=== PATIENT | female | born 1970 | race Caucasian/White ===

== ENCOUNTER 2016-10-04 16:32 | Outpatient (CLI) ==
[2016-10-04 17:58] LABS: BILIRUBIN,URINE Negative (NEGATIVE); KETONES,URINE Trace (NEGATIVE); LEUKOCYTE ESTERASE ,URINE Negative (NEGATIVE); NITRITE,URINE Negative (NEGATIVE); PH,URINE 5.5 (5-9); PROTEIN,URINE Trace (NEGATIVE); URINE, BLOOD Negative (NEGATIVE)
[2016-10-04 17:59] LABS: ADD URINE MICROSCOPIC YES
[2016-10-04 18:01] LABS: BACTERIA,URINE 2+ (NOT PRESENT)
== END 2016-10-04 16:33 | disposition home or self-care (01) ==
LOC: LAB 16:32
PROVIDERS: ATTEND Nurse Practitioner Family
DX: Z00.00 Encounter for general adult medical examination without abnormal findings (principal); I10 Essential (primary) hypertension; R80.9 Proteinuria, unspecified; R82.4 Acetonuria
CPT/HCPCS: 81001; 87086